=== PATIENT | female | born 1955 | race Two or more races ===

== ENCOUNTER 2023-09-08 20:04 | Emergency (ER) | payer MEDICARE, OTHER ==
[~2023-09-08] VITALS: Ht 162.6 cm; Wt 61.2 kg
[2023-09-08] MEDS ORDERED: ACETAMINOPHEN ES 500 MG TABLET PO ONE (20:30)
[2023-09-08] MEDS ORDERED: IBUPROFEN 600 MG TABLET PO ONE (20:30)
[2023-09-08] MEDS ORDERED: ACETAMINOPHEN ES 500 MG TABLET ONE (20:30)
[2023-09-08] MEDS ORDERED: IBUPROFEN 600 MG TABLET ONE (20:30)
[2023-09-08] MEDS ORDERED: IBUP-1953 PO (21:50)
[2023-09-08 23:19] VITALS: BP 145/88; TEMP 98.2; O2SAT 98
== END 2023-09-08 23:19 | disposition home or self-care (01) ==
LOC: ER 20:12
DX: S29.012A Strain of muscle and tendon of back wall of thorax, initial encounter (principal); S20.219A Contusion of unspecified front wall of thorax, initial encounter; M54.2 Cervicalgia; I10 Essential (primary) hypertension; V49.9XXA Car occupant (driver) (passenger) injured in unspecified traffic accident, initial encounter; Y93.89 Activity, other specified; Y92.89 Other specified places as the place of occurrence of the external cause; Y99.8 Other external cause status
CPT/HCPCS: 71045-TC; 72125-TC